=== PATIENT | female | born 1975 | race African-American/Black ===

== ENCOUNTER 2019-08-03 03:15 | Inpatient (IN) | payer BC ==
[2019-08-03] VITALS (16 sets, daily range): BP systolic 77–117; BP diastolic 37–64; PULSE 58–85; TEMP 98–98.6
[~2019-08-03] VITALS: Ht 154.9 cm; Wt 65.0 kg
[2019-08-03 03:39] LABS: BASO % 0.1 % (0.0-2.0); EOS # 0.1 (0.0-0.7); EOS % 0.5 % (0-4.0); GRAN % 64.7 % (42.2-75.2); HEMATOCRIT 38.5 % (37.0-47.0); HEMOGLOBIN 12.6 g/dl (12.5-16.0); LYMPH # 2.6 (1.2-3.4); LYMPH % 28.2 % (20.0-51.0); MEAN CELL VOLUME 86 fl (80.0-100.0); MEAN CORPUSCULAR HEMOGLOBIN 28 pg (27.0-31.0); MEAN CORPUSCULAR HGB CONC 33 g/dl (33.0-37.0); MEAN PLATELET VOLUME 9.5 fl (7.4-10.4); MONO # 0.6 (0.1-0.6); MONO % 6.4 % (1.7-9.3); PLATELET COUNT 219 K/mm3 (130-400); REDCELL DISTRIBUTION WIDTH-CV 13.4 % (11.5-14.5)
[2019-08-03 05:06] LABS: BASO % 0.1 % (0.0-2.0); EOS % 0.2 % (0-4.0); GRAN # 5.7 (1.4-6.5); GRAN % 70.3 % (42.2-75.2); HEMATOCRIT 21.5 % (37.0-47.0); HEMOGLOBIN 6.9 g/dl (12.5-16.0); LYMPH # 1.9 (1.2-3.4); LYMPH % 23.9 % (20.0-51.0); MEAN CELL VOLUME 90 fl (80.0-100.0); MEAN CORPUSCULAR HEMOGLOBIN 29 pg (27.0-31.0); MEAN CORPUSCULAR HGB CONC 32 g/dl (33.0-37.0); MONO # 0.4 (0.1-0.6); MONO % 5.1 % (1.7-9.3); PLATELET COUNT 136 K/mm3 (130-400); REDCELL DISTRIBUTION WIDTH-CV 13.3 % (11.5-14.5)
[2019-08-03] MEDS ORDERED: IBU800 M1 PO (08:51)
[2019-08-03] MEDS ORDERED: PERCOCET 325 MG1 TA2 PO (08:51)
[2019-08-03] MEDS ORDERED: FERROUS SU325 MG/TAB PO (08:52)
[2019-08-03 13:59] LABS: HEMATOCRIT 38.1 % (37.0-47.0)
[2019-08-03 14:01] LABS: HEMOGLOBIN 12.6 g/dl (12.5-16.0)
== END 2019-08-03 15:30 | disposition home or self-care (01) | DRG 770 ==
LOC: COL.ER 03:15 → OB 03:17 → COL.ER 03:17 → OB 06:22 → COL.ER 06:22 → OB 06:23 → LDRO 06:23 → OB 07:10
PROVIDERS: Emergency Medicine; ADMIT Student in an Organized Health Care Education/Training Program
PROC: 10D17ZZ Extraction of Products of Conception, Retained, Via Natural or Artificial Opening (ICD-10-PCS; principal; 2019-08-03 06:30)
DX: O03.1 Delayed or excessive hemorrhage following incomplete spontaneous abortion (principal); D62 Acute posthemorrhagic anemia; I95.9 Hypotension, unspecified
CPT/HCPCS: J1940; J2210; J2405; J2550; J2704; J3010; J7030; J7120; P9016